=== PATIENT | female | born 2000 | race Two or more races ===

== ENCOUNTER 2024-12-04 17:38 | Emergency (ER) | payer MEDICAID, SELFPAY ==
[2024-12-04 18:14] VITALS: BP 93/62; PULSE 72; RESP 18; TEMP 36.8; O2SAT 99; BMI 20.1
--- NOTE | 2024-12-04 18:43 | EKG_ITS ---
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
[2024-12-04] MEDS: METOCLOPRAMIDE 5 MG TABLET 10 MG PO (19:31)
[2024-12-04] MEDS: SUMAtriptan 25 MG TABLET PO (19:33)
--- NOTE | 2024-12-04 19:34 | PD.EDHA ---
ED Headache RME/HPI General Chief Complaint: Syncope / Near Syncope Stated Complaint: SYNCOPAL EPISODE Time Seen by Provider: 12/04/24 18:52 Arrival date/time: 12/04/24 17:38 24F with no significant PMH presents to ED with 2 days of R-sided MURO and some ear pain. Patient went to PCP who states it may be due to bruxism. There was some wax in R ear apparently and patient had a syncopal episode right after. They checked her sugar, which was 97. Patient is here more for the MURO that Tylenol did not relieve. Patient does not have regular migraines or syncopal episodes. Limitations: no limitations Related Data Home Medications ?Medication ?Instructions ?Recorded ?Confirmed ferrous sulfate 325 mg (65 mg 325 mg PO BID 08/29/18 08/29/18 iron) tablet (iron) vit no.95-ferrous 1 tab PO QDAY 08/29/18 08/29/18 fumarate 28 mg-folic acid 800 mcg tablet () Allergies Allergy/AdvReac Type Severity Reaction Status Date / Time No Known Allergies Allergy Verified 12/04/24 17:44 Review of Systems Review of Systems Systems Reviewed: All systems reviewed, normal except as documented Constitutional Constitutional: Reports system reviewed and no additional complaints, except as documented, Reports as per HPI, Denies fever(s) and Reports headache(s) ENT Ears, Nose, Mouth, and Throat: Denies disequilibrium and Reports headache(s) Cardiovascular Cardiovascular: Reports system reviewed and no additional complaints, except as documented, Denies chest pain and Denies dyspnea Respiratory Respiratory: Reports system reviewed and no additional complaints, except as documented, Denies cough and Denies dyspnea Gastrointestinal Gastrointestinal: Reports system reviewed and no additional complaints, except as documented, Denies abdominal pain, Denies nausea and Denies vomiting Neurologic Neurologic: Reports system reviewed and no additional complaints, except as documented, Denies confusion, Denies disequilibrium and Reports headache(s) Psychiatric Psychiatric: Denies confusion Past Medical History Past Medical History CARDIAC: Negative Congestive Heart Failure RESPIRATORY: Negative Chronic Obstructive Pulmonary Disease (COPD) GENITOURINARY: Negative Renal Disease ENDOCRINE: Negative Diabetes Mellitus Type 1 or Diabetes Mellitus Type 2 OTHER HISTORY: Negative Hospitalization or Autoimmune Disease Family History FAMILY HISTORY: Negative Family Psychiatric Problems, Family Respiratory Disorders, Family Cardiac Disorders, Family Gastrointestinal Problems, Family Cancer, Family Surgery or Family Anesthesia Reaction Surgical History SURGICAL: Negative Section Social History SMOKING STATUS: Never smoker SECOND HAND EXPOSURE: No ED Exam General Limitations: Present no limitations General appearance: Present alert and in no apparent distress Head Head exam: Present atraumatic Eye Eye exam: Present normal appearance, PERRL and EOMI ENT ENT exam: Present normal exam, normal oropharynx and mucous membranes moist Neck Neck exam: Present normal inspection, full ROM and trachea midline Chest Chest inspection: Present normal inspection and symmetric chest wall rise Respiratory Respiratory exam: Present normal lung sounds bilaterally Cardiovascular Cardiovascular exam: Present regular rate, normal rhythm and normal heart sounds Abdominal Exam Abdominal exam: Present soft and normal bowel sounds Extremities Exam Extremities exam: Present normal inspection and full ROM Back Exam Back exam: Present normal inspection and full ROM Neurological Exam Neurological exam: Present alert, oriented X3 and CN II-XII intact Psychiatric Psychiatric exam: Present normal affect and normal mood Skin Skin exam: Present warm, dry, intact and normal color Course Quality Measures none Orders Category Date Time Status EKG (ED ONLY) *Do not use* NOW Care 12/04/24 18:43 Completed EKG (ED Only) Stat Exams 12/04/24 18:43 Draft Metoclopramide [Reglan] Med 12/04/24 19:11 Discontinued 10 mg PO X1 ONE SUMAtriptan [Imitrex] Med 12/04/24 19:11 Discontinued 25 mg PO X1 ONE Vital Signs Vital signs: Vital Signs Temperature 98.3 F 12/04/24 18:14 Pulse Rate 72 12/04/24 18:14 Respiratory Rate 18 12/04/24 18:14 Blood Pressure 93/62 12/04/24 18:14 Pulse Oximetry (%) 99 12/04/24 18:14 Oxygen Delivery Method Room Air 12/04/24 18:14 O2 at 99% on RA and WNLs Headache MDM Narrative MDM Narrative:: 24F with no significant PMH presents to ED with 2 days of R-sided MURO and some ear pain. Patient went to PCP who states it may be due to bruxism. There was some wax in R ear apparently and patient had a syncopal episode right after. They checked her sugar, which was 97. Patient is here more for the MURO that Tylenol did not relieve. Patient does not have regular migraines or syncopal episodes. Physical exam reveals normal pupil response and EOM. ENT and lungs clear. CN II-XII grossly intact. Gait normal. Patient is afebrile, calm, and alert. EKG is sinus lili of 56. Syncopal likely due to changes in ear pressure vs vasovagal. Patient states she will follow-up with PCP for that, but is more concerned about MURO. Migraine meds improved symptoms. 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 Patient data External records reviewed:: [facility] previous records Clinical information provided by:: patient Social determinants that could affect healthcare access:: none Patient has the following chronic illnesses:: none How is presenting disease/condition affected by chronic disease/condition?: no chronic disease Evaluation data The following diagnostics were reviewed and interpreted by me:: EKG tracing(s) Lab and/or radiology exams considered but not ordered:: ordered Interpretation Summary: above Medications / Prescriptions Medications or Prescriptions considered but not ordered:: ordered Medication administrations:: Medication Administration History Discontinued Medications Metoclopramide HCl (Metoclopramide 5 Mg Tablet) 10 mg PO X1 ONE Stop: 12/04/24 19:12 Last Admin: 12/04/24 19:31 Dose: 10 mg Documented By: Sumatriptan Succinate (Sumatriptan 25 Mg Tablet) 25 mg PO X1 ONE Stop: 12/04/24 19:12 Last Admin: 12/04/24 19:33 Dose: 25 mg Documented By: above Consultations Consultation(s) initiated? (list below): No Diagnosis Differential diagnosis headache: migraine, tension headache, subarachnoid hemorrhage, headache, meningitis, sinusitis, postconcussion syndrome and other (vasovagal syncope, CVA/TIA) Most likely diagnosis given after review of the tests above:: migraine Admission Indicated Admission indicated?: not indicated Admission Request Was there a request for admission?: No Disposition Plan Disposition Plan: Discharge Discharge Attestation Discharge Attestation: The patient and all family members were given an opportunity to ask questions and understood the discharge instructions. Discharge instructions specifically effects, indications for sooner follow up or return to the emergency department, and the expected course of current diagnosis. Patient condition: Stable Discharge Plan Plan Patient Disposition: HOME (Self Care) Disposition Comment: Stable Prescriptions/Referrals Prescriptions/Med Rec: No Action ferrous sulfate [iron] 325 mg (65 mg iron) Tablet 325 mg PO BID PNV cmb#95-ferrous fumarate-FA [] 28 mg iron- 800 mcg Tablet 1 tab PO QDAY Referrals: Malcom Arita MD [Primary Care Provider] - In 1 week Problem List Clinical Impression: Migraine Patient/Caregiver Discharge Instructions Education Materials: ED Headache, Migraine, Classic Additional Instructions: Please follow-up with PCP within 24-48 hours and return immediately if symptoms worsen. Print Language: [place] Stand Alone Forms: Patient Portal Info Letter PA/LOAN COORDINATOR Supervising Physician PA/LOAN COORDINATOR Supervising Physician: Dr. Mixon
== END 2024-12-04 21:06 | disposition home or self-care (01) ==
PROVIDERS: Emergency Provider Emergency Medicine; PCP Family Medicine
DX: G43.909 Migraine, unspecified, not intractable, without status migrainosus (principal); R00.1 Bradycardia, unspecified
CPT/HCPCS: 93005; 99283; A9270